=== PATIENT | male | born 1990 | race Caucasian/White ===

== ENCOUNTER → 2024-03-18 | Outpatient (CLI) | payer SELFPAY ==
--- NOTE | 2024-03-18 10:52 | US_ITS ---
STUDY: SCROTUM ULTRASOUND REASON FOR EXAM: Male, 34 years old. LEFT TESTICLE PAIN TECHNIQUE: Ultrasound evaluation of the scrotum was performed with color Doppler and static galvan-scale imaging. COMPARISON: None. FINDINGS: RIGHT TESTICLE INTRATESTICULAR: There is a normal size of the right testicle. The right testicle measures 5.3 x 2.8 x 2.5 cm. There is a homogenous echotexture. There is normal arterial and normal venous vascularity. There is no demonstrated right testicular mass or cyst. EXTRATESTICULAR: The epididymis is normal in size. The epididymis head measures 1.1 x 1.3 x 1.1 cm. There is normal vascularity of the epididymis. There is a small epididymal cyst measuring 0.3 x 0.3 x 0.3 cm. There is no demonstrated hydrocele. There is no demonstrated varicocele. There is no demonstrated extratesticular mass or cyst. LEFT TESTICLE INTRATESTICULAR: There is a normal size of the left testicle. The left testicle measures 5.0 x 2.9 x 2.5 cm. There is a homogenous echotexture. There is normal arterial and normal venous vascularity. There is no demonstrated left testicular mass or cyst. EXTRATESTICULAR: The epididymis is normal in size. The epididymis head measures 0.9 x 1.0 x 1.0 cm. There is normal vascularity of the epididymis. There is no demonstrated epididymal cystic structure. There is no demonstrated hydrocele. There is no demonstrated varicocele. There is no demonstrated extratesticular mass or cyst. US/Testicular with Arterial Flow IMPRESSION: Small right epididymal cyst otherwise negative bilateral scrotal ultrasound. Electronically Signed: Jackson Ortiz MD at 13:04 EDT ,
== END | disposition home or self-care (01) ==
PROVIDERS: PCP Family Medicine; Referring Provider Family Medicine; Visit Provider Family Medicine
DX: N50.812 Left testicular pain (principal)
CPT/HCPCS: 76870; 93976